=== PATIENT | male | born 1975 | race Caucasian/White ===

== ENCOUNTER → 2017-12-26 | Outpatient (CLI) | payer OTHER | LOC: M.RAD 10:27 | DX: R06.02 Shortness of breath (principal); R07.81 Pleurodynia ==

== ENCOUNTER → 2018-01-12 | Outpatient (CLI) | payer OTHER ==
--- NOTE | 2018-01-12 17:06 | 2DMMODE ---
[place] [address] 2 D/M-MODE ECHOCARDIOGRAM Name: MADELYN HEREDIA Room: [facility]#: [id number] Admission: 01/12/18 Attend Phys: Gina Hunt DO Discharge: Date of : 75 Date of Service: 01/12/18 1706 Report #: [id number] THIS REPORT FOR: //name// APPROVED REPORT Study performed: 01/12/2018 14:59:22 EXAM: Comprehensive 2D, Doppler, and color-flow Echocardiogram Patient Location: Out-Patient BSA: 2.60 HR: 73 bpm BP: 126/73 mmHg Other Information Study Quality: Technically Difficult Technically limited study due to body habitus. Indications Dyspnea 2D Dimensions LVEF(%): 53.18 (>50%) IVSd: 13.01 (7-11mm) LVOT Diam: 23.27 (18-24mm) LVDd: 43.87 mm PWd: 11.00 (7-11mm) Ascending Ao: 33.50 (22-36mm) LVDs: 31.94 (25-40mm) Aortic Root: 34.51 mm Calvin's LVEF: 53.18 % Volumes Left Atrial Volume (Systole) LA ESV Index: 29.10 mL/m2 Aortic Valve AoV Peak Abhijeet.: 1.43 m/s AO Peak Gr.: 8.16 mmHg LVOT Max P.00 mmHg AO Mean Gr.: 4.49 mmHg LVOT Mean P.31 mmHg LVOT Max V: 1.12 m/s AO V2 VTI: 27.35 cm LVOT Mean V: 0.69 m/s CARY (VTI): 3.80 cm2 LVOT V1 VTI: 24.41 cm Mitral Valve E/A Ratio: 1.34 MV Decel. Time: 182.[place] [address] 2 D/M-MODE ECHOCARDIOGRAM Name: MADELYN HEREDIA Room: [facility]#: [id number] Admission: 01/12/18 Attend Phys: Gina Hunt DO Discharge: Date of : 75 Date of Service: 01/12/18 1706 Report #: [id number] MV E Max Abhijeet.: 0.50 m/s MV PHT: 53.00 ms MVA (PHT): 4.15 cm2 TDI E/Lateral E': 4.17 E/Medial E': 5.56 Medial E' Abhijeet.: 0.09 m/s Lateral E' Abhijeet.: 0.12 m/s Pulmonary Valve PV Peak Abhijeet.: 1.05 m/s PV Peak Gr.: 4.38 mmHg Tricuspid Valve RAP Estimate: 5.00 mmHg TR Peak Gr.: 8.52 mmHg RVSP: 13.52 mmHg PA Pressure: 13.52 mmHg Left Ventricle The left ventricle is normal size. There is normal LV segmental wall motion. There is normal left ventricular wall thickness. Left ventricular systolic function is normal. The left ventricular ejection fraction is within the normal range. LVEF is 60%. Grade I - abnormal relaxation pattern. Right Ventricle The right ventricle is normal size. The right ventricular systolic function is normal. Atria The left atrium size is normal. The right atrium size is normal. Aortic Valve The aortic valve is normal in structure. No aortic regurgitation is present. There is no aortic valvular stenosis. Mitral Valve The mitral valve is normal in structure. There is no mitral valve regurgitation noted. No evidence of mitral valve stenosis. Tricuspid Valve The tricuspid valve is normal in structure. Trace tricuspid regurgitation. Pulmonic Valve The pulmonary valve is normal in structure. [place] [address] 2 D/M-MODE ECHOCARDIOGRAM Name: MADELYN HEREDIA [id number] Admission: 01/12/18 Attend Phys: Gina Hunt DO Discharge: Date of : 75 Date of Service: 01/12/18 1706 Report #: [id number] valvular regurgitation. Great Vessels The aortic root is normal in size. IVC is normal in size and collapses with >50% inspiration Pericardium There is no pericardial effusion. <Conclusion> The left ventricle is normal size. There is normal left ventricular wall thickness. Left ventricular systolic function is normal. The left ventricular ejection fraction is within the normal range. LVEF is 60%. Grade I - abnormal relaxation pattern. The right ventricle is normal size. The left atrium size is normal. The aortic valve is normal in structure. The mitral valve is normal in structure. The tricuspid valve is normal in structure. IVC is normal in size and collapses with >50% inspiration There is no pericardial effusion. There is normal LV segmental wall motion. <ELECTRONICALLY SIGNED> By: Harsha Mary MD, [facility] 01/12/181705 05 05 Harsha Mary MD, FACC /INF
== END ==
LOC: M.CRD 14:50 → M.ULTRA 15:30
DX: N43.3 Hydrocele, unspecified (principal); L72.9 Follicular cyst of the skin and subcutaneous tissue, unspecified; R06.00 Dyspnea, unspecified; R06.02 Shortness of breath